=== PATIENT | female | born 1990 ===

== ENCOUNTER → 2019-07-23 09:04 | Outpatient (CLI) | payer OTHER, SELFPAY ==
[2019-07-23 09:36] LABS: Add Manual Diff / Slide Review NO; Basophils Absolute Auto 0 /uL (0-100); Basophils Percent Auto 0.3 % (0-2); Eosinophils Absolute Auto 200 /uL (0-450); Eosinophils Percent Auto 1.5 % (2-4); Hematocrit 41.7 % (36-46); Hemoglobin 14.5 g/dL (12.0-16.0); Lymphocytes Absolute Auto 2300 /uL (1100-4500); Lymphocytes Percent Auto 23.1 % (25-40); Mean Corpuscular HGB Conc 34.7 % (30-36); Mean Corpuscular Hemoglobin 31.9 PG (26-34); Monocytes Absolute Auto 600 /uL (0-900); Monocytes Percent Auto 5.5 % (3-14); Neutrophils Absolute Auto 7100 /uL (1500-7000); Neutrophils Percent Auto 69.6 % (50-75); Platelet Count 242 X10^3/uL (150-400); Red Blood Cell Count 4.53 X10^6/uL (4.0-5.2); Red Cell Distribution Width 14.8 % (11.6-14.8); White Blood Cell Count 10.2 X10^3/uL (4.5-11.0)
[2019-07-23 10:02] LABS: Appearance Urine UA CLOUDY; Bilirubin Urine UA NEGATIVE (NEGATIVE); Color Urine UA YELLOW; Glucose Urine UA NEGATIVE (Negative); Ketones Urine UA NEGATIVE (NEGATIVE); Leukocyte Esterase Urine UA NEGATIVE (NEGATIVE); Nitrite Urine UA NEGATIVE (Negative); Occult Blood Urine UA NEGATIVE (Negative); Protein Urine UA NEGATIVE (Negative); Urobilinogen Urine UA 0.2 E.U./dL (0.2)
[2019-07-24 04:36] LABS: RPR Screen Non Reactive (Non Reactive)
[2019-07-24 08:07] LABS: Varicella IgG Antibody >4000 index (Immune >165)
[2019-07-24 15:14] LABS: Hepatitis B Surface Antigen NEGATIVE s/c (NEGATIVE); Rubella Antibody IgG 17.2 IU/mL (>15)
[2019-07-24 15:26] LABS: HIV 1 & 2 Ab/Ag 4th Gen Combo NEGATIVE (NEGATIVE); Hep C Virus Ab w/Reflex Quant NEGATIVE s/c (NEGATIVE)
[2019-07-25 21:34] LABS: AFP, Serum 54.2 ng/mL (.); Calc Gestational Age Ultrasound (.); Estriol, Free 2.07 ng/mL (.); Inhibin A, Dimeric 213.75 pg/mL (.); Inhibin A, MoM 1.49 (.); Maternal Ethnicity Black (.); Maternal Weight 193 lbs (.); Number of Fetuses No (.); OSBR Risk 1 IN 3427 (.); Results Report (.); Test Results *Screen Negative* (.); hCG, MoM 1.97 (.); hCG, Serum 65180 mIU/mL (.)
== END ==
PROVIDERS: Referring Provider Specialist; Visit Provider Specialist
DX: Z34.01 Encounter for supervision of normal first pregnancy, first trimester (principal); Z3A.16 16 weeks gestation of pregnancy
CPT/HCPCS: 36415; 80055; 81003; 82105; 82677; 84702; 86336; 86787; 86803; 86850; 86900; 86901; 87086; 87389

== ENCOUNTER → 2019-08-20 12:45 | Outpatient (CLI) | payer OTHER, SELFPAY ==
--- NOTE | 2019-08-20 12:50 | DI.US.S_ITS ---
PROCEDURE: US OB >= 14 WEEKS FETUS INDICATIONS: 20 WEEK ANATOMY SCAN OUTSIDE/PRIOR DATING DATA: Last menstrual period (LMP): 03/09/19. LMP-based estimated date of delivery (LETTY): 12/15/19. First dating scan (date and location): 05/11/19. Estimated date of delivery (LETTY) from first dating scan: 01/05/20. TECHNIQUE: Real-time scanning was performed of the fetus, with image documentation and biometric measurements. COMPARISON: [facility], , OB >= 14 WEEKS FETUS, 08/20/2019, 11:22. FINDINGS: General: A single living intrauterine gestation is present. Presentation: Vertex. Placenta: Placental position is posterior, without previa. Amniotic fluid index: 17.1 cm, normal range is 5-24 cm. heart rate: 144 beats per minute. Maternal cervical canal: 4.2 cm long. biometrics: Biparietal diameter: 5.2 cm 21 weeks 5 days Head circumference: 19.4 cm 21 weeks 5 days Abdominal circumference: 16.8 cm 21 weeks 5 days Femur length: 3.5 cm 21 weeks one day Estimated gestational age from initial scan: 20 weeks 2 days Composite gestational age from present scan: 21 weeks 5 days Estimated weight and percentile: 431 g 97th percentile Anatomic survey: Neuro: Ventricles are non-dilated at less than 10 mm. Cisterna magna is normal at 3-11 mm. Cerebellum is normal in size and morphology. Nuchal skin fold: Normal at less than 6 mm between 14-21 weeks gestational age. Face: Nose and lips, facial profile are normal. Spine: No evidence for spina bifida. Heart: 4-chambered heart is present, with normal ventricular outflow tracts. Diaphragm: Diaphragm is intact. Stomach: Left-sided stomach is present. Kidneys: No hydronephrosis. Normal is less than 5 mm in 2nd trimester, less than 7 mm in 3rd trimester. Cord: 3-vessel cord has orthotopic insertion. Bladder: Normal in size. Extremities: All 4 extremities identified. IMPRESSION: 1. Single intrauterine with ultrasound LETTY of 01/05/20. 2. weight is at the 97th percentile. 3. Anatomy is within normal limits. Dictated by: Inga Wynn M.D. on 08/20/2019 at 16:29 Approved by: Inga Wynn M.D. on 08/20/2019 at 16:31
== END ==
PROVIDERS: Referring Provider Specialist; Visit Provider Specialist
DX: Z34.02 Encounter for supervision of normal first pregnancy, second trimester (principal); Z3A.21 21 weeks gestation of pregnancy
CPT/HCPCS: 76811

== ENCOUNTER → 2019-09-16 09:10 | Outpatient (CLI) | payer OTHER, SELFPAY ==
[2019-09-16 11:05] LABS: Hematocrit 34.7 % (36-46); Hemoglobin 11.9 g/dL (12.0-16.0)
[2019-09-16 12:26] LABS: GTT (PREG) 1 Hour PP 50gm Dose 153 mg/dL (76-139)
== END ==
PROVIDERS: Referring Provider Specialist; Visit Provider Specialist
DX: Z34.02 Encounter for supervision of normal first pregnancy, second trimester (principal)
CPT/HCPCS: 36415; 82950; 85014; 85018

== ENCOUNTER → 2019-12-10 11:29 | Outpatient (CLI) | payer OTHER, SELFPAY ==
[2019-12-11 10:29] LABS: Strep Grp B PCR NEG for Grp B Strep
== END ==
PROVIDERS: Visit Provider Specialist
DX: Z34.03 Encounter for supervision of normal first pregnancy, third trimester (principal)
CPT/HCPCS: 87653

== ENCOUNTER 2019-12-30 01:14 | Inpatient (IN) | payer OTHER, SELFPAY ==
[2019-12-30 01:54] LABS: COVID19 -Nasal RAPID Negative (Negative)
[2019-12-30] MEDS: ONDANSETRON 4 MG ODT SL (04:10)
[2019-12-30] MEDS: METOCLOPRAMIDE 10 MG/2 ML INJ IV (05:26)
[2019-12-30] MEDS: fentaNYL 100 MCG/2 ML INJ IV (05:28)
[2019-12-30] MEDS: LACTATED RINGERS 1,000 ML 100 ML IV ×3 (05:28→11:00)
[2019-12-30 05:30] LABS: Add Manual Diff / Slide Review NO; Basophils Absolute Auto 100 /uL (0-100); Basophils Percent Auto 0.5 % (0-2); Eosinophils Absolute Auto 0 /uL (0-450); Eosinophils Percent Auto 0.1 % (2-4); Hemoglobin 14.8 g/dL (12.0-16.0); Lymphocytes Absolute Auto 1500 /uL (1100-4500); Lymphocytes Percent Auto 11.3 % (25-40); Mean Corpuscular HGB Conc 34.5 % (30-36); Mean Corpuscular Hemoglobin 32.4 PG (26-34); Mean Corpuscular Volume 93.9 fL (80-100); Monocytes Absolute Auto 600 /uL (0-900); Monocytes Percent Auto 4.1 % (3-14); Neutrophils Absolute Auto 11300 /uL (1500-7000); Platelet Count 157 X10^3/uL (150-400); Red Blood Cell Count 4.58 X10^6/uL (4.0-5.2); Red Cell Distribution Width 13.9 % (11.6-14.8); White Blood Cell Count 13.5 X10^3/uL (4.5-11.0)
[2019-12-30 06:35] VITALS: BP 114/60
--- NOTE | 2019-12-30 08:00 | P.HPOB_ITS ---
OB HPI Date/Time Date of admission: 12/30/19 Date Patient Seen: 12/30/19 Time Patient Seen: 08:00 History of Present Condition Chief complaint: Evaluation of Labor : 1 Para: 0 Estimated Date of Delivery: 01/05/20 Estimated Gestational Age (weeks): 39 Narrative: Ceci Booth is a 29 year old at 39 weeks 1 day presenting in early labor. The patient presented to labor and delivery overnight, made slow cervical change, then underwent SROM for clear fluid at 5:50 a.m and has continued to make cervical change. The patient recently received an epidural and is feeling well, denied bleeding, decreased movement prior to her epidural. The patient's was complicated by GDM A1, well controlled with dietary interventions. She denies any other complications or contributory medical, surgical, family, or social history. History of Present care: good care, initiated at week # (7) and number of visits (13) Obstetrical complications: gestational diabetes (GDMA1 ) Preadmission Labs Blood type: A (+) positive -: Antibody screen: negative, GBS status: negative, HBsAG: negative, HIV: negative and RPR/VDLR: negative -: Chlamydia screen: not detected and Gonorrhea screen: not detected -: Rubella: immune PAP: Normal Quad screen: Normal Urine: lactobacillus 1 hr GTT: 153 Evaluation Evaluation Baseline heart rate: 125 Variability: Average (6-10) monitor decelerations: Periodic (late/early) Contraction Frequency (minutes): 3 Category of Tracing: Reactive Cervical dilation (cm): 4 Cervical effacement (%): 100 station: -2 Laboratory results: Laboratory Tests 12/30/19 12/30/19 12/30/19 01:30 05:20 05:20 WBC 13.5 H RBC 4.58 Hgb 14.8 Hct 43.0 MCV 93.9 MCH 32.4 MCHC 34.5 RDW 13.9 Plt Count 157 Neut % (Auto) 84.0 H Lymph % (Auto) 11.3 L [place] % (Auto) 4.1 Eos % (Auto) 0.1 L Baso % (Auto) 0.5 Neut # (Auto) 53987 H Lymph # (Auto) 1500 [place] # (Auto) 600 Eos # (Auto) 0 Baso # (Auto) 100 COVID-19 PCR Negative Blood Type A Positive Antibody Screen Negative [facility] Medical History Kidney stones (Acute ~2010) Family History Mother Diverticulitis One of twins Father Diabetes mellitus Grandmother Cancer Grandfather Cancer Family/Other Diverticulitis Social History marital status: pets and animals: No education level: college occupational status: unemployed current occupational exposures/hazards: No special timothy needs: No Smoking Status: Never smoker second hand exposure: No substance use type: does not use Meds Home Medications and Allergies Home Medications Medication Instructions Recorded Confirmed Type prenat.vits,sonali,dno-[id number] 1 tab PO DAILY 05/21/19 12/30/19 History Probiotic 5 PO 06/18/19 12/24/19 History Biocleanse supplement PO 06/18/19 12/24/19 History Ease supplement PO 06/18/19 12/24/19 History Reid X supplement PO 06/18/19 12/24/19 History x Faxtor Plus supplement PO 06/18/19 12/24/19 History blood sugar diagnostic #100 each 09/24/19 12/30/19 Rx blood-glucose meter #1 each 09/24/19 12/24/19 Rx lancets #100 each 09/24/19 12/24/19 Rx Double Electric breast Pump and #1 each 11/28/19 12/24/19 Rx Supplies Allergies Allergy/AdvReac Type Severity Reaction Status Date / Time No Known Drug Allergies Allergy Verified 12/30/19 06:34 Review of Systems Constitutional Constitutional: Reports system reviewed and no additional complaints, except as documented Cardiovascular Cardiovascular: Reports system reviewed and no additional complaints, except as documented Respiratory Respiratory: Reports system reviewed and no additional complaints, except as documented Gastrointestinal Gastrointestinal: Reports system reviewed and no additional complaints, except as documented Genitourinary Genitourinary: Reports system reviewed and no additional complaints, except as documented Exam Vital Signs (past 8 hours): - 12/30/19 06:35 Blood Pressure 114/60 Const General: cooperative, healthy appearing and comfortable Other: Resting in bed, comfortable after epidural GI Palpation: soft External Female Exam: normal external appearance OB/External & Speculum: external exam normal Manual OB Exam: dilated 4, effaced fully and station -2 Presentation: vertex Estimated Weight (lbs): 8 Amniotic Fluid: clear Extrem General: normal to inspection Objective Labs Result Diagrams: 12/30/19 05:20 Labs: Laboratory Results - last 24 hr 12/30/19 12/30/19 12/30/19 01:30 05:20 05:20 WBC 13.5 H RBC 4.58 Hgb 14.8 Hct 43.0 MCV 93.9 MCH 32.4 MCHC 34.5 RDW 13.9 Plt Count 157 Neut % (Auto) 84.0 H Lymph % (Auto) 11.3 L [place] % (Auto) 4.1 Eos % (Auto) 0.1 L Baso % (Auto) 0.5 Neut # (Auto) 33963 H Lymph # (Auto) 1500 [place] # (Auto) 600 Eos # (Auto) 0 Baso # (Auto) 100 COVID-19 PCR Negative Blood Type A Positive Antibody Screen Negative Assessment and Plan Assessment and Plan Assessment and Plan narrative: This patient presented in early labor, has undergone SROM, and is making cervical change. Will continue to closely monitor for cervical change and contraction pattern, with pitocin augmentation as necessary. Patient had received fentanyl at 7 AM and has long periods of minimal variability, but reassuring EFM prior and + scalp stim on exam. - Labs drawn - cEFM, toco - Anticipate
[2019-12-30] MEDS: OXYTOCIN 10 UNIT/ML VIAL 20 UNIT (12:00)
--- NOTE | 2019-12-30 12:11 | PM.OBHP.1 ---
OB HPI History of Present Condition Chief complaint: Evaluation of Labor Narrative: Ceci Booth is a 29 year old female Evaluation Evaluation Laboratory results: Laboratory Tests 12/30/19 12/30/19 12/30/19 01:30 05:20 05:20 WBC 13.5 H RBC 4.58 Hgb 14.8 Hct 43.0 MCV 93.9 MCH 32.4 MCHC 34.5 RDW 13.9 Plt Count 157 Neut % (Auto) 84.0 H Lymph % (Auto) 11.3 L [place] % (Auto) 4.1 Eos % (Auto) 0.1 L Baso % (Auto) 0.5 Neut # (Auto) 79549 H Lymph # (Auto) 1500 [place] # (Auto) 600 Eos # (Auto) 0 Baso # (Auto) 100 COVID-19 PCR Negative Blood Type A Positive Antibody Screen Negative [facility] Medical History Kidney stones (Acute ~2009) Family History Mother Diverticulitis One of twins Father Diabetes mellitus Grandmother Cancer Grandfather Cancer Family/Other Diverticulitis Social History marital status: pets and animals: No education level: college occupational status: unemployed current occupational exposures/hazards: No special timothy needs: No Smoking Status: Never smoker second hand exposure: No substance use type: does not use Meds Home Medications and Allergies Home Medications Medication Instructions Recorded Confirmed Type prenat.vits,sonali,nff-fymr-qdwcu 1 tab PO DAILY 05/21/19 12/24/19 History Probiotic 5 PO 06/18/19 12/24/19 History Biocleanse supplement PO 06/18/19 12/24/19 History Ease supplement PO 06/18/19 12/24/19 History Reid X supplement PO 06/18/19 12/24/19 History x Faxtor Plus supplement PO 06/18/19 12/24/19 History blood sugar diagnostic #100 each 09/24/19 12/24/19 Rx blood-glucose meter #1 each 09/24/19 12/24/19 Rx lancets #100 each 09/24/19 12/24/19 Rx Double Electric breast Pump and #1 each 11/28/19 12/24/19 Rx Supplies Allergies Allergy/AdvReac Type Severity Reaction Status Date / Time No Known Drug Allergies Allergy Verified 12/30/19 06:34 Exam Vital Signs (past 8 hours): - 12/30/19 06:35 Blood Pressure 114/60 Objective Labs Result Diagrams: 12/30/19 05:20 Labs: Laboratory Results - last 24 hr 12/30/19 12/30/19 12/30/19 01:30 05:20 05:20 WBC 13.5 H RBC 4.58 Hgb 14.8 Hct 43.0 MCV 93.9 MCH 32.4 MCHC 34.5 RDW 13.9 Plt Count 157 Neut % (Auto) 84.0 H Lymph % (Auto) 11.3 L [place] % (Auto) 4.1 Eos % (Auto) 0.1 L Baso % (Auto) 0.5 Neut # (Auto) 89483 H Lymph # (Auto) 1500 [place] # (Auto) 600 Eos # (Auto) 0 Baso # (Auto) 100 COVID-19 PCR Negative Blood Type A Positive Antibody Screen Negative
[2019-12-30] MEDS: IBUPROFEN 600 MG TABLET PO ×2 (13:58→23:56)
[2019-12-30] MEDS: LANOLIN OINT 7 GM 1 APPLIC TOP (13:59)
--- NOTE | 2019-12-30 18:12 | PM.OBPRVD ---
Events: Gestational Diabetes Labor & Delivery Delivery date: 12/30/19 Cervical ripening method: none Induction method: none Delivery monitor: none Route of delivery: L&D Laceration Description: Perineal - 2nd Degree and Labial Delivery repair: vicryl Estimated blood loss (mL): 300 Anesthesia type: Epidural Complications: None Narrative: This patient presented in early labor at 39 weeks gestation, and progressed to active labor without augmentation after SROM. She progressed rapidly, and delivered a healthy baby boy from the OA presentation after a 45 minute second stage. The delivery was complicated by a compound left arm, but the shoulders delivered with ease and there was no nuchal cord. Apgars were 8+9, and weight was 8#6oz. After 45 seconds delayed cord clamping, the cord was clamped and cut. The placenta spontaneously delivered intact shortly thereafter. A right labial laceration and a 2nd degree perineal laceration were repaired in the usual fashion with 3-0 vicryl. Of note, the perineal laceration only minimally extended to the skin of the perineum. The patient was administered 20mU of pitocin in her IV fluids over the three hours after delivery. There were no other intrapartum or immediate complications. [place] Baby 1: Infant gender: Male Presentation: vertex position: Left Occiput Transverse (OA) Placenta delivery description: Spontaneous cord vessel description: 3 Vessels score (1 min): 8 score (5 min): 9 Plan for aftercare: Routine care.
[2019-12-31] MEDS: DERMOPLAST SPRAY 20% 60 ML 1 SPRAY TOP (05:26)
[2019-12-31] MEDS: IBUPROFEN 600 MG TABLET PO (05:26)
--- NOTE | 2019-12-31 08:19 | P.DS_ITS ---
Discharge Providers Provider Date of admission: 12/30/19 01:14 Discharge Date: 12/31/19 Primary care physician: Amanda Oswald MD Consults: 12/30/19 05:00 Consult to Anesthesiology Urgent Comment: Consulting Provider: Anesthesiologist Reason for consultation: Epidural 12/31/19 12:12 Consult to Director Community Organization Routine Comment: Discharge provider: Eva Frank MD Summary Hospital Course Date Patient Seen: 12/31/19 Time Patient Seen: 08:19 Procedures: Vaginal delivery Hospital Course: This patient was admitted in early labor, and progressed unaugmented after SROM for clear fluid. After a short 2nd stage, she was delivered of a healthy baby girl without complications. Her course was similarly uncomplicated, and she was discharged on PPD#1. Peripartum Data Delivery Method: Natural Vaginal Laceration Description: Perineal - 2nd Degree and Labial Procedures: Spontaneous vaginal delivery complications: none 1: Gender: Male Disposition of : home Status at Discharge Cognitive/behavioral status at discharge: oriented Functional status at discharge: independent ambulation Overall status at discharge: patient is progressing back to baseline Time Spent with Patient Time attestation: Total time spent providing and/or coordinating discharge services: Time spent: Less than 30 minutes Objective Labs Result Diagrams: 12/30/19 05:20 Exam Vital Signs (past 8 hours): 125/62, HR 58 Narrative Exam Narrative: Patient doing well this AM, good pain control, voiding, passing flatus, ambulating, moderate lochia. Const General: cooperative, healthy appearing and comfortable Resp Effort & Inspection: normal respiratory effort Auscultation: clear to auscultation bilaterally Cardio Rate: regular rate Rhythm: regular rhythm GI Palpation: soft and No tender (fundus firm, below u) Skin General: no rashes or lesions noted Discharge Plan Discharge Plan Patient Disposition: Home Discharge orders & Medications Prescriptions: New acetaminophen [Tylenol] 325 mg tablet 325 mg PO Q6H PRN (Reason: vaginal delivery) Qty: 20 RF: 0 ibuprofen 600 mg tablet 600 mg PO Q8H PRN (Reason: vaginal delivery) Qty: 20 RF: 0 Continued prenat.vits,sonali,cee-pddf-hecfe Tablet 1 tab PO DAILY RF: 0 Probiotic 5 PO RF: 0 Discontinued Biocleanse supplement PO RF: 0 x Faxtor Plus supplement PO RF: 0 Ease supplement PO RF: 0 Reid X supplement PO RF: 0 No Action (DME) blood-glucose meter [Blood Glucose Monitoring] Kit See Rx Instructions .ROUTE .MEDSUPPLY Qty: 1 RF: 0 (DME) lancets Misc See Rx Instructions .ROUTE .MEDSUPPLY Qty: 100 RF: 3 (DME) blood sugar diagnostic [Blood Glucose Test] Strip See Rx Instructions .ROUTE .MEDSUPPLY Qty: 100 RF: 3 (DME) Double Electric breast Pump and Supplies See Rx Instructions .ROUTE .MEDSUPPLY Qty: 1 RF: 0 Follow up/Referrals: Amanda Oswald MD [Primary Care Provider] - 6 Weeks () Diet/Activity/Treatments Diet: Regular Activity: Nothing in the vagina for 6 weeks. Avoid heavy lifting for 6 weeks. If you have increasing bleeding, fevers, chills, nausea, vomiting, headaches, or any other symptoms or concerns, call the office or come to the emergency room. Skin/Wound/Dressing Care Report to your healthcare provider any signs of infection, such as:: chills, fever, night sweats, increased pain, unusual drainage and unusual redness Visit Report/Discharge Packet Instructions: DI for Labor and Delivery, Vaginal Discharge Data Primary Care Provider: Amanda Oswald Attending Provider: Eva Frank Date/Time: 12/30/19 01:14
[2019-12-31 12:07] VITALS: BP 130/82; PULSE 84; RESP 16; TEMP 36.7
== END 2019-12-31 13:51 | disposition home or self-care (01) | DRG 807 ==
PROVIDERS: Admitting Provider Obstetrics & Gynecology; PCP Specialist; Referring Provider Family Medicine; Visit Provider Obstetrics & Gynecology
DX: O24.420 Gestational diabetes mellitus in childbirth, diet controlled (principal); Z37.0 Single live birth; O64.4XX0 Obstructed labor due to shoulder presentation, not applicable or unspecified; Z3A.39 39 weeks gestation of pregnancy; O70.1 Second degree perineal laceration during delivery; Z11.59 Encounter for screening for other viral diseases
CPT/HCPCS: 01967; 59025; 59050; 59400; 59409; 84112; 85025; 86850; 86900; 86901; 87635; G0379; J2590; J2765; J3010

== ENCOUNTER → 2022-04-25 06:51 | Outpatient (CLI) | payer OTHER, SELFPAY ==
--- NOTE | 2022-04-25 | DI.US.S_ITS ---
PROCEDURE: US OB >= 14 WEEKS FETUS INDICATIONS: 20 WEEK ANATOMY SCAN OUTSIDE/PRIOR DATING DATA: Last menstrual period (LMP): November 28, 2021. LMP-based estimated date of delivery (LETTY): September 04, 2022. First dating scan (date and location): April 25, 2022. Estimated date of delivery (LETTY) from first dating scan: September 10, 2022. The calculations are made using the ultrasound LETTY of September 10, 2022. TECHNIQUE: Real-time scanning was performed of the fetus, with image documentation and biometric measurements. Endovaginal scanning: Not performed COMPARISON: [facility], , OB >= 14 WEEKS FETUS, 12/10/2019, 11:35. FINDINGS: General: A single living intrauterine gestation is present. Presentation: Breech. Placenta: Placental position is posterior , without previa. Amniotic fluid index: 17.6 cm, normal range is 5-24 cm. Single deepest vertical pocket is 5.0 cm. heart rate: 144 beats per minute. Maternal cervical canal: 3.4 cm long. Normal lower limit is 2.5 cm. biometrics: Biparietal diameter: 4.8 cm, 20 weeks and 3 days Head circumference: 18.0 cm, 20 weeks and 3 days Abdominal circumference: 14.9 cm, 20 weeks and 1 day Femur length: 3.2 cm, 19 weeks and 6 days Clinically estimated gestational age: 21 weeks and 1 day Composite gestational age from present scan: 20 weeks and 2 days Estimated weight and percentile: 331 g which correlates with the 7th percentile based off gestational age. Anatomic survey: Neuro: Ventricles are non-dilated at less than 10 mm. Cisterna magna is normal at 3-11 mm. Cerebellum is normal in size and morphology. Nuchal skin fold: Normal at less than 6 mm between 14-21 weeks gestational age. Face: Nose and lips, facial profile are normal. Spine: No evidence for spina bifida. Heart: 4-chambered heart is present, with normal ventricular outflow tracts. Diaphragm: Diaphragm is intact. Stomach: Left-sided stomach is present. Kidneys: No hydronephrosis. Normal is less than 5 mm in 2nd trimester, less than 7 mm in 3rd trimester. Cord: 3-vessel cord has orthotopic insertion. Bladder: Normal in size. Extremities: All 4 extremities identified. IMPRESSION: Single living intrauterine gestation with estimated sonographic gestational age of approximately 20 weeks and 2 days. Expected interval growth has occurred. Estimated weight of approximately 331 g which correlates with the 7th percentile based off gestational age. Unremarkable routine second-trimester anatomy screening survey. We strive to produce accurate, complete, and clear reports of imaging services. To assist us in improving patient care, this report was composed using standard report templates and voice recognition software. Therefore, it may contain abnormal punctuation, insertions and/or omissions. Occasional wrong-word or sound-alike substitutions may occur. Though we review the report and make efforts to correct it, we do recommend that the report be read carefully in proper context to recognize any text inaccuracies. Dictated by: Manuel Bah M.D. on 04/25/2022 at 10:26 Approved by: Maneul Bah M.D. on 04/25/2022 at 10:30
== END ==
PROVIDERS: Referring Provider Nurse Practitioner Obstetrics & Gynecology; Visit Provider Nurse Practitioner Obstetrics & Gynecology
DX: Z36.89 Encounter for other specified antenatal screening (principal); Z3A.20 20 weeks gestation of pregnancy
CPT/HCPCS: 76811

== ENCOUNTER 2022-08-31 18:57 | Inpatient (IN) | payer OTHER, SELFPAY ==
--- NOTE | 2022-08-31 19:26 | P.HPOB_ITS ---
OB HPI Date/Time Date of admission: 08/31/22 Date Patient Seen: 08/31/22 Time Patient Seen: 19:20 History of Present Condition Chief complaint: Labor : 2 Para: 1 Estimated Date of Delivery: 09/04/22 Estimated Gestational Age (weeks): 39.3 Narrative: Ceci Smith is a 32 year old female @ [id number] by LMP concordant with 13wk US presenting for evaluation of labor. Contractions started this morning and slow progressed in frequency and intensity. No breathing through strong contractions every 5-6 minutes. Lots of FM. No vaginal bleeding or leaking of fluid. Uncomplicated care with CNMs. Planned a home but had to switch plans today due to CNM illness. Desires no intervention . Declines IV. Partner and l tacker are present and supportive. History of Present care: good care, initiated at week # (13), number of visits (9) and pounds weight gain (-4) Dating criteria: LMP confirmed by 1st trimester US Ultrasounds: normal mid trimester US Obstetrical complications: none Medical complications: none Preadmission Labs Blood type: A (+) positive -: Antibody screen: negative, GBS status: negative, HBsAG: negative, HIV: negative and RPR/VDLR: negative -: Chlamydia screen: not detected and Gonorrhea screen: not detected -: Rubella: immune and Varicella: immune HCT: 39.3 HCAB: negative Narrative: Declined gtt. QID BGs x 2 weeks 100% normal. Prior (ies) History: 12/30/19: NSVB @ 56lit0w, epidural, 8lb6oz male, 2nd degree lac, GDMA1 Evaluation Evaluation Baseline heart rate: 140 Variability: Moderate (11-25) monitor accelerations: Present Monitor Decelerations: Absent Contraction Frequency (minutes): 4 Uterine Contraction Intensity: Strong/Firm Status: Category l Dilation (cm): 6 Effacement (%): 80 Dilation: >/=5 cm Effacement: >/=80% station: -2 Position of cervix: posterior Consistency: soft Posada score: 9 [facility] Medical History (Updated 03/10/21 @ 17:50 by Amanda Oswald MD) Gestational diabetes Kidney stones (~2009) Vaginal delivery (~12/30/19) Family History Mother Diverticulitis One of twins Father Diabetes mellitus Grandmother Cancer Grandfather Cancer Family/Other Diverticulitis Social History marital status: pets and animals: No education level: college occupational status: unemployed current occupational exposures/hazards: No special timothy needs: No Smoking Status: Never smoker second hand exposure: No substance use type: does not use Meds Home Medications and Allergies Home Medications Medication Instructions Recorded Confirmed Type prenat.vits,sonali,qpz-anox-nqwuo 1 tab PO DAILY 05/21/19 08/31/22 History Probiotic 5 PO 06/18/19 02/19/20 History Double Electric breast Pump and #1 ea 11/28/19 02/19/20 Rx Supplies Allergies Allergy/AdvReac Type Severity Reaction Status Date / Time No Known Drug Allergies Allergy Verified 08/31/22 19:31 Review of Systems Review of Systems ROS: Yes unobtainable due to mental status OB Exam Vital signs Blood Pressure: 117/65 Pulse Rate: 92 Resp Effort & Inspection: normal respiratory effort and able to speak in complete sentences Auscultation: clear to auscultation bilaterally Cardio Rate: regular rate Rhythm: regular rhythm Heart Sounds: S1 normal and S2 normal Presentation: vertex Objective Labs 08/31/22 19:40 Assessment and Plan Assessment and Plan Assessment and Plan narrative: A: Term primipara Active labor No indication for GBS prophylaxis Cat FHR P: Admit, routine orders. Expectant management. Labor support, PRN. Reassess in 4 hours or sooner, PRN.
[2022-08-31 19:29] VITALS: BP 117/65
[2022-08-31 19:39] VITALS: BP 117/65; PULSE 92
[2022-08-31 20:33] LABS: Basophils Absolute Auto 0 /uL (0-100); Basophils Percent Auto 0.3 % (0-2); Eosinophils Absolute Auto 0 /uL (0-450); Eosinophils Percent Auto 0.4 % (2-4); Hematocrit 35.9 % (36-46); Hemoglobin 12.5 g/dL (12.0-16.0); Lymphocytes Absolute Auto 2000 /uL (1100-4500); Lymphocytes Percent Auto 21.9 % (25-40); Mean Corpuscular HGB Conc 34.9 % (30-36); Mean Corpuscular Hemoglobin 31.8 PG (26-34); Monocytes Absolute Auto 700 /uL (0-900); Monocytes Percent Auto 7.4 % (3-14); Neutrophils Absolute Auto 6500 /uL (1500-7000); Platelet Count 182 X10^3/uL (150-400); Red Blood Cell Count 3.95 X10^6/uL (4.0-5.2); Red Cell Distribution Width 14.2 % (11.6-14.8); White Blood Cell Count 9.2 X10^3/uL (4.5-11.0)
[2022-08-31 20:34] LABS: Add Manual Diff / Slide Review SLIDE REVIEW
[2022-08-31 21:06] LABS: RBC Morphology Normal Morphology
--- NOTE | 2022-09-01 00:19 | PM.OBPRVD ---
Labor & Delivery Delivery date: 09/01/22 Intrapartal Events: None Cervical ripening method: none Induction method: none Delivery monitor: external FHT Route of delivery: Episiotomy description: None L&D Laceration Description: None Quantitative Blood Loss: 25 Anesthesia Type: None Narrative: Ceci arrived in spontaneous labor and progressed well without augmentation or analgesia. CNM called to room for spontaneous urge to push and Ceci was on hands and knees with head . NSVB of a vigorous baby boy in direct OA position. The shoulders delivered easily and the was sommersaulted through a single loose nuchal cord. passed through maternal legs to Ceci who was assisted to her left side with her son against her skin. After cessation of pulsation, the cord was double clamped by CNM and cut by the java developer consultant. Cord blood hold sample was collected. Gentle cord traction and a maternal push led to spontaneous, Schultze delivery of an apparently intact placenta, membrane sand 3VC. Fundus immediately firm and bleeding minimal. Vagina and perineum inspected and intact. QBL 25. Both mother and baby stable and skin to skin as I left the room. Baby 1: gender: Male Presentation: vertex Placenta delivery description: Spontaneous Cord Vessel Description: 3 Vessels, Nuchal Cord and Loose score (1 min): 9 score (5 min): 9 weight: 3.345 kg Plan for aftercare: Routine care
[2022-09-01] MEDS: IBUPROFEN 600 MG TABLET PO (00:39)
[2022-09-01] MEDS: ACETAMINOPHEN 325 MG TABLET 650 MG PO (00:39)
--- NOTE | 2022-09-01 04:41 | P.DS_ITS ---
Discharge Providers Provider Date of admission: 08/31/22 18:57 Discharge Date: 09/01/22 Primary care physician: Marlyn Adames CNM Consults: 09/02/22 00:16 Consult to Manager Medicaid Routine Comment: Discharge provider: Marlyn Adames CNM Summary Hospital Course Date Patient Seen: 09/01/22 Time Patient Seen: 04:41 Diagnoses: O80 Hospital Course: 5 hours s/p NSVB with no lacerations. Arrived in spontaneous, term labor and progressed without augmentation, anesthesia or complications. Voiding, ambulating and independently. Tolerating a general diet. Vaginal bleeding is light, without clots. Had planned a home and now desires an early discharge to home. Partner is present and supportive. Peripartum Data Delivery Method: Natural Vaginal Laceration Description: None Episiotomy description: None Procedures: O80 complications: none Beulah 1: Gender: Male Disposition of : home Discharge Diagnosis (1) Encounter for full-term uncomplicated delivery: Status: Acute Status at Discharge Cognitive/behavioral status at discharge: oriented and calm Functional status at discharge: independent ambulation Overall status at discharge: patient is progressing back to baseline Time Spent with Patient Time attestation: Total time spent providing and/or coordinating discharge services: Objective Labs 08/31/22 19:40 Labs: Laboratory Results - last 24 hr 08/31/22 08/31/22 19:40 19:40 WBC 9.2 RBC 3.95 L Hgb 12.5 Hct 35.9 L MCV 91.0 MCH 31.8 MCHC 34.9 RDW 14.2 Plt Count 182 Neut % (Auto) 70.0 Lymph % (Auto) 21.9 L [place] % (Auto) 7.4 Eos % (Auto) 0.4 L Baso % (Auto) 0.3 Neut # (Auto) 6500 Lymph # (Auto) 2000 [place] # (Auto) 700 Eos # (Auto) 0 Baso # (Auto) 0 Plt Morphology Comment RBC Morphology Normal morphology Blood Type A Positive Antibody Screen Negative Exam Vital Signs (past 8 hours): BP 112/71, HR 76mmHg, T 36.2C Temporal Other: Fundus firm @ u. lochia light, without clots. Minimal perineal edema. Discharge Plan Discharge Plan Patient Disposition: Home Discharge orders & Medications Prescriptions: New ibuprofen 600 mg Tablet 600 mg PO Q6HR PRN (Reason: Pain, Mild (1-3)) 14 Days Qty: 60 0RF Continued prenat.vits,sonali,zas-yqpo-rmzai Tablet 1 tab PO DAILY (DME) Double Electric breast Pump and Supplies See Rx Instructions .ROUTE .MEDSUPPLY Qty: 1 0RF Rx Instructions: As directed for 99 months. Probiotic 5 PO Follow up/Referrals: Marlyn Adames CNM [Primary Care Provider] - (Follow-up Sunday/tomorr morning in the hospital for you and Terence. Follow-u pat 2 weeks and 6 weeks , as scheduled. Appointments are in your email. ) Diet/Activity/Treatments Diet: Diet as Tolerated and Regular Activity: pelvic rest x 6 weeks Skin/Wound/Dressing Care Report to your healthcare provider any signs of infection, such as:: chills, fever, increased pain, unusual drainage and unusual redness Visit Report/Discharge Packet Instructions: DI for Labor and Delivery, Vaginal , DI for Depression Stand Alone Forms: Patient Portal/API, Stroke Signs & Symptoms Discharge Data Primary Care Provider: Marlyn Adames Discharges patient from system. Discharge Date/Time: 09/01/22 09:04
[2022-09-01 09:04] VITALS: BP 112/71; PULSE 76; RESP 13; TEMP 36.2
== END 2022-09-01 09:04 | disposition home or self-care (01) | DRG 807 ==
PROVIDERS: Admitting Provider Nurse Practitioner Obstetrics & Gynecology; PCP Nurse Practitioner Obstetrics & Gynecology; Referring Provider Nurse Practitioner Obstetrics & Gynecology; Visit Provider Nurse Practitioner Obstetrics & Gynecology
DX: O80 Encounter for full-term uncomplicated delivery (principal); Z37.0 Single live birth; Z3A.39 39 weeks gestation of pregnancy
CPT/HCPCS: 59050; 85025; 86850; 86900; 86901; G0379